=== PATIENT | female | born 1935 | race Hispanic/Latino ===

== ENCOUNTER 2019-08-03 10:20 | Emergency (ER) | payer OTHER ==
[2019-08-03] MEDS ORDERED: IBUPROFEN 400 MG TAB ONE (11:14)
[2019-08-03] MEDS ORDERED: ACETAMINOPHEN 500 MG TAB ONE (11:15)
--- NOTE | 2019-08-03 11:45 | RAD REPORT ---
EXAM DESCRIPTION: CT - [id number] - 08/03/2019 11:19 am CLINICAL HISTORY: Fall, head and neck injury COMPARISON: None. TECHNIQUE: Axial 5 mm thick images of the head were obtained. Axial 2 mm thick images of the cervic al spine were obtained with sagittal and coronal reconstruction images generated and reviewed. All CT scans are performed using dose optimization technique as appropriate and may include automated exposure control or mA/KV adjustment according to patient size. FINDINGS: No intracranial hemorrhage, mass, edema or acute intracranial finding. No suspicion for acute infarct ion. Moderate atrophy and mild to moderate chronic ischemic changes are present. Ventricles are in pr oportion. Mastoid air cells are clear. Orbits, sinuses and facial bones are further detailed in separ ate report. No globe or orbit abnormality seen. Moderate-sized right frontal scalp hematoma is presen t. No skull fracture. Patient has hyperostosis frontalis interna normal variant. Cervical body height and alignment are normal. C6-7 disc space narrowing. Patient has prominent degen erative change at the dens C1 level. Calcifications are present in the transverse ligament posterior to the dens. An acute component not seen. No vertebral body fracture identified. Patient has prominen t facet degenerative change primarily on the left. There is significant foraminal stenosis on the lef t at C4-5. Mild bilateral foraminal stenosis at C5-6 and on the left at C6-7. Central canal detail is inherently limited. No paraspinal mass or hematoma. IMPRESSION: Atrophy and chronic ischemic changes are present. No acute intracranial finding. Orbits, facial bones and sinuses are separately detailed. Cervical spine degenerative changes are present as detailed. No acute findings seen.
--- NOTE | 2019-08-03 11:49 | RAD REPORT ---
EXAM DESCRIPTION: CT - Facial Bones W/ Mpr - 08/03/2019 11:19 am CLINICAL HISTORY: Fall, blunt force trauma to the forehead COMPARISON: None. TECHNIQUE: Axial 2 millimeter thick images of the facial bones were obtained with sagittal and coron al reconstruction imaging. All CT scans are performed using dose optimization technique as appropriate and may include automated exposure control or mA/KV adjustment according to patient size. FINDINGS: Mastoid air cells are clear. No skullbase fracture identified. No fracture of the mandible. Degenerative changes are present at both temporomandibular joints. Both condyles are positioned anteriorly from the glenoid fossa. This is a chronic finding for this patient . Nondisplaced nasal bone fracture present. Nasal septum remains in the midline. No other facial bone fractures seen. Moderately large scalp hematoma overlies the right frontal bone and extending to the superior orbital ridge. Minimal air-fluid level is present in the sphenoid sinus. Sinuses are otherw ise clear. No globe or orbital content acute finding. IMPRESSION: Nondisplaced nasal bone fractures. Moderate scalp hematoma overlying the right frontal bone. Underlying bone and sinus are intact. 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
--- NOTE | 2019-08-03 13:03 | RAD REPORT ---
EXAM DESCRIPTION: RAD - Pelvis - 08/03/2019 12:51 pm CLINICAL HISTORY: Fall, pelvis and hip pain COMPARISON: None. TECHNIQUE: AP imaging of the pelvis was obtained. FINDINGS: No fracture of the bony pelvis. No fracture, dislocation or other acute hip joint finding. No significant SI joint findings. No soft tissue abnormality. IMPRESSION: Negative pelvis for acute or significant findings.
--- NOTE | 2019-08-03 13:04 | RAD REPORT ---
EXAM DESCRIPTION: RAD - Knee Right 3 View - 08/03/2019 12:52 pm CLINICAL HISTORY: Fall, right knee pain COMPARISON: None. FINDINGS: No fracture, dislocation or periosteal reaction.No joint effusion seen. Patient has signif icant medial compartment narrowing with moderate size marginal spurs. Patella femoral joint space als o narrowed with patella marginal spurring. Mild spurring is present along the tibial spine. No foreig n body or other soft tissue abnormality. IMPRESSION: Prominent degenerative change as detailed. No acute finding. Clinical concerns for internal derangement or occult bony injury could be further assessed with MR im aging.
--- NOTE | 2019-08-03 13:05 | RAD REPORT ---
EXAM DESCRIPTION: RAD - Chest Single View - 08/03/2019 12:52 pm CLINICAL HISTORY: Fall, chest pain COMPARISON: April 2014 TECHNIQUE: AP portable chest image was obtained 1215 hours . FINDINGS: Lung volumes are low. No peripheral mass or consolidation. No failure or volume overload. Mediastinum is accentuated by shallow inspiration imaging. Heart and vasculature are normal. No measu rable pleural effusion and no pneumothorax. No acute bony abnormality seen. No acute aortic findings suspected. IMPRESSION: No acute cardiopulmonary process. No suspicious change from comparison.
--- NOTE | 2019-08-03 14:49 | EDPHYS ---
Physician Documentation [facility] Name: Odlays Jones Age: 83 yrs Sex: Female : 1935 Arrival Date: 08/03/2019 Time: 10:27 Bed 24 Private MD: ED Physician Kartik Rai HPI: 08/03 10:59 This 83 yrs old Female presents to ER via EMS with complaints of Fall Injury. wa 10:59 Details of fall: The patient fell from an upright position. Onset: The symptoms/episode wa began/occurred just prior to arrival. Associated injuries: The patient sustained facial. Severity of symptoms: At their worst the symptoms were moderate, in the emergency department the symptoms are unchanged. The patient has not experienced similar symptoms in the past. The patient has not recently seen a physician. states tripped and fell inside a bank. denies LOC. admits to facial pain. fell on R side. admits to pain on the R knee and shoulder. Historical: - Allergies: 10:31 No Known Allergies; ca1 - PMHx: 10:31 Hyperlipidemia; Hypertension; Diabetes - NIDDM; ca1 - PSHx: 10:31 Hysterectomy; Appendectomy; ca1 - Immunization history:: Adult Immunizations not up to date, Last tetanus immunization: unknown. - Social history:: Smoking status: Patient/guardian denies using tobacco. - Ebola Screening: : Patient negative for fever greater than or equal to 101.5 degrees Fahrenheit, and additional compatible Ebola Virus Disease symptoms Patient denies exposure to infectious person Patient denies travel to an Ebola-affected area in the 21 days before illness onset No symptoms or risks identified at this time. - Family history:: not pertinent. - Hospitalizations: : No recent hospitalization is reported. ROS: 11:05 Constitutional: Negative for body aches, chills, fever, weight loss. wa 11:05 Eyes: Positive for swelling, of the R forehead, Negative for pain, photophobia, redness. 11:05 ENT: Positive for abrasion , Negative for dental pain. 11:05 Neck: Negative for injury or acute deformity. 11:05 Cardiovascular: Negative for chest pain, edema, orthopnea, palpitations. 11:05 Respiratory: Negative for cough, shortness of breath. 11:05 Abdomen/GI: Negative for abdominal pain. 11:05 Back: Negative for injury or acute deformity, pain at rest. 11:05 MS/extremity: Positive for pain, R knee. R shoulder and upper arm. 11:05 Skin: Positive for abrasion(s), of the face. 11:05 All other systems are negative. 14:52 : Negative for urinary symptoms. wa 14:53 Psych: Negative for depression, anxiety, suicide ideation, homicidal ideation, and wa hallucinations. Exam: 11:09 Constitutional: This is a well developed, well nourished patient who is awake, alert, wa and in no acute distress. Chest/axilla: Normal chest wall appearance and motion. Nontender with no deformity. No lesions are appreciated. Cardiovascular: Regular rate and rhythm with a normal S1 and S2. No gallops, murmurs, or rubs. Normal PMI, no JVD. No pulse deficits. Respiratory: Lungs have equal breath sounds bilaterally, clear to auscultation and percussion. No rales, rhonchi or wheezes noted. No increased work of breathing, no retractions or nasal flaring. Abdomen/GI: Soft, non-tender, with normal bowel sounds. No distension or tympany. No guarding or rebound. No evidence of tenderness throughout. Back: No spinal tenderness. No costovertebral tenderness. Full range of motion. Neuro: Awake and alert, GCS 15, oriented to person, place, time, and situation. Cranial nerves II-XII grossly intact. Motor strength 5/5 in all extremities. Sensory grossly intact. Cerebellar exam normal. Normal gait. Psych: Awake, alert, with orientation to person, place and time. Behavior, mood, and affect are within normal limits. 11:09 Neck: Trachea midline, no thyromegaly or masses palpated, and no cervical lymphadenopathy. Supple, full range of motion without nuchal rigidity, or vertebral point tenderness. No Meningismus. 11:09 Head/face: Noted is abrasion(s), that are mild, of the face, contusion, of the R forehead, tenderness, of the R forehead. 11:09 Musculoskeletal/extremity: Extremities: grossly normal except: noted in the right knee: tenderness. 11:09 Skin: injury, abrasion(s). Vital Signs: 10:31 BP 156 / 92; Pulse 78; Resp 18 S; Temp 98.5(O); Pulse Ox 98% on R/A; Weight 81.65 kg ca1 (R); Height 5 ft. 2 in. (157.48 cm) (R); Pain 9/10; 12:52 BP 154 / 69; Pulse 71; Resp 16 S; Pulse Ox 99% on R/A; ca1 14:17 BP 173 / 80; Pulse 76; Resp 16 S; Pulse Ox 99% on R/A; ca1 10:31 Body Mass Index 32.92 (81.65 kg, 157.48 cm) ca1 Spurger Coma Score: 10:35 Eye Response: spontaneous(4). Verbal Response: oriented(5). Motor Response: obeys ca1 commands(6). Total: 15. Trauma Score (Adult): 10:35 Eye Response: spontaneous(1); Verbal Response: oriented(1); Motor Response: obeys ca1 commands(2); Systolic BP: > 89 mm Hg(4); Respiratory Rate: 10 to 29 per min(4); Spurger Score: 15; Trauma Score: 12 MDM: 10:28 Patient medically screened. wa 11:15 Differential diagnosis: closed head injury, contusion, fracture, multiple trauma. Data wa reviewed: vital signs, nurses notes. 13:56 Test interpretation: by ED physician or midlevel provider: head and C-spine CT: no wa acute process. CXR: no acute process. pelvic x-ray: no acute process. facial CT: non-displaced nasal bone fx. R forehead hematoma. Response to treatment: the patient's symptoms have markedly improved after treatment. 14:45 Test interpretation: by ED physician or midlevel provider: R shoulder x-ray: No acute wa fx. ED course: pain improved with pain meds. advised tylenol for pain. ENT f/u. . 08/03 10:58 Order name: XRAY Pelvis; Complete Time: 13:15 ny 08/03 10:58 Order name: XRAY Chest (1 view); Complete Time: 13:15 ny 08/03 10:58 Order name: CT Head C Spine; Complete Time: 12:21 ny 08/03 10:59 Order name: CT Facial Bones W/O Con; Complete Time: 12:22 ny 08/03 10:59 Order name: Knee Right 3 View XRAY; Complete Time: 13:15 ny 08/03 13:10 Order name: Shoulder Right (2 View) XRAY wa Administered Medications: 11:30 Drug: Tylenol 1000 mg Route: PO; ca1 12:54 Follow up: Response: No adverse reaction; Pain is decreased ca1 11:32 Drug: Motrin 400 mg Route: PO; ca1 12:54 Follow up: Response: No adverse reaction; Pain is decreased ca1 Disposition: 08/03/19 14:48 Discharged to Home. Impression: fall, acute nasal bone fracture, facial abrasion, right shoulder sprain. - Condition is Stable. - Discharge Instructions: Shoulder Sprain, Nasal Fracture, [id number]. - Prescriptions for cetirizine 10 mg Oral tablet - take 1 tablet by ORAL route once daily; 10 tablet. - Medication Reconciliation Form, Thank You Letter, Antibiotic Education, Prescription Opioid Use form. - Follow up: Private Physician; When: 2 - 3 days; Reason: Re-evaluation by your physician. Follow up: Jeanine Bocanegra MD; When: 2 - 3 days; Reason: Recheck today's complaints. - Problem is new. - Symptoms have improved. - Notes: take 2 extra-strength tylenol for pain 2-3 times a day as needed. take cetirizine if congested. follow up with the ENT doctor for fractured nose evaluation Signatures: Dispatcher [employer] EDMS Kartik Rai MD MD wa Acob, Cheryl, RN RN ca1 Corrections: (The following items were deleted from the chart) 14:52 14:48 08/03/2019 14:48 Discharged to Home. Impression: fall; acute nasal bone fracture; wa facial abrasion; right shoulder sprain. Condition is Stable. Forms are Medication Reconciliation Form, Thank You Letter, Antibiotic Education, Prescription Opioid Use. Follow up: Private Physician; When: 2 - 3 days; Reason: Re-evaluation by your physician. Problem is new. Symptoms have improved. ny 15:02 14:52 08/03/2019 14:48 Discharged to Home. Impression: fall; acute nasal bone fracture; ca1 facial abrasion; right shoulder sprain. Condition is Stable. Discharge Instructions: Nasal Fracture, [id number], Shoulder Sprain. Prescriptions for cetirizine 10 mg Oral tablet - take 1 tablet by ORAL route once daily; 10 tablet. and Forms are Medication Reconciliation Form, Thank You Letter, Antibiotic Education, Prescription Opioid Use. Follow up: Private Physician; When: 2 - 3 days; Reason: Re-evaluation by your physician. Follow up: Jeanine Bocanegra; When: 2 - 3 days; Reason: Recheck today's complaints. Problem is new. Symptoms have improved. wa
--- NOTE | 2019-08-03 14:49 | ER ---
Nurse's Notes [facility] Name: Odalys Jones Age: 83 yrs Sex: Female : 1935 Arrival Date: 08/03/2019 Time: 10:27 Bed 24 Private MD: Diagnosis: fall;acute nasal bone fracture;facial abrasion;right shoulder sprain Presentation: 08/03 10:27 Presenting complaint: EMS states: Mechanical fall, fell face forward. Hematoma on L ca1 frontal area. DENIES LOC, pt NOT on blood thinners. Epistaxis on scene but has resolved. Cold pack applied on affected area. Transition of care: patient was not received from another setting of care. Onset of symptoms was August 03, 2019. Risk Assessment: Do you want to hurt yourself or someone else? Patient reports no desire to harm self or others. Initial Sepsis Screen: Does the patient meet any 2 criteria? No. Patient's initial sepsis screen is negative. Does the patient have a suspected source of infection? No. Patient's initial sepsis screen is negative. Care prior to arrival: Care prior to arrival: Glucose check: 137. 10:27 Method Of Arrival: EMS: [facility] ca1 10:27 Acuity: ZURI 3 ca1 11:09 Mechanism of Injury: Fall from standing position. Trauma event details: Injury occurred ca1 in the [facility], Injury occurred: at home. Injury occurred: August 03, 2019 Injury occurred at: 10:15. Trauma Activation: Not Applicable Physician: ED Physician; Name: ; Notified At: ; Arrived At: Physician: General Surgeon; Name: ; Notified At: ; Arrived At: Physician: Radiology; Name: ; Notified At: ; Arrived At: Physician: Respiratory; Name: ; Notified At: ; Arrived At: Physician: Lab; Name: ; Notified At: ; Arrived At: Historical: - Allergies: 10:31 No Known Allergies; ca1 - PMHx: 10:31 Hyperlipidemia; Hypertension; Diabetes - NIDDM; ca1 - PSHx: 10:31 Hysterectomy; Appendectomy; ca1 - Immunization history:: Adult Immunizations not up to date, Last tetanus immunization: unknown. - Social history:: Smoking status: Patient/guardian denies using tobacco. - Ebola Screening: : Patient negative for fever greater than or equal to 101.5 degrees Fahrenheit, and additional compatible Ebola Virus Disease symptoms Patient denies exposure to infectious person Patient denies travel to an Ebola-affected area in the 21 days before illness onset No symptoms or risks identified at this time. - Family history:: not pertinent. - Hospitalizations: : No recent hospitalization is reported. Screenin:05 Abuse screen: Denies threats or abuse. Denies injuries from another. Nutritional ca1 screening: No deficits noted. Tuberculosis screening: No symptoms or risk factors identified. Fall Risk Fall in past 12 months (25 points). Ambulatory Aid- Crutches/Cane/Walker (15 pts). Total Zelaya Fall Scale indicates Low Risk Score (25-44 pts). Fall prevention measures have been instituted. Side Rails Up X 2 Family Present and informed to notify staff if they need to leave bedside As available Patient and Family Educated on Fall Prevention Program and strategies. Primary Survey: 10:35 NO uncontrolled hemorrhage observed. A: The patient is alert. Airway: patent. ca1 Breathing/Chest: Respiratory pattern: regular, Respiratory effort: spontaneous, unlabored. Circulation: Heart tones present. Pulses: palpable bilateral radial, brachial, femoral, popliteal, posterior tibial and and dorsalis pedis arteries.. Skin color: pink, Skin temperature: warm, dry. Disability Alert. Exposure/Environment: All clothing and personal items were removed. Forensic evidence collection is not deemed to be indicated at this time. Items placed in patient belonging bag. There is no evidence of uncontrolled external bleeding. No obvious injuries are noted at this time. A warming method has been applied: A warm blanket has been provided to the patient. 11:35 Reassessment Airway Airway Patent Breathing/Chest Respiratory pattern Regular ca1 Respiratory effort Spontaneous Unlabored Breath sounds Clear Chest inspection Symmetrical Circulation Pulses Palpable Color [place] Pale Disability Alert. Assessment: 10:35 General: Appears in no apparent distress. comfortable, Behavior is calm, cooperative, ca1 appropriate for age. Pain: Complains of pain in forehead Pain currently is 9 out of 10 on a pain scale. Neuro: Level of Consciousness is awake, alert, obeys commands, Oriented to person, place, time, situation, Appropriate for age. Cardiovascular: Heart tones S1 S2 present Capillary refill < 3 seconds Patient's skin is warm and dry. Respiratory: Airway is patent Respiratory effort is even, unlabored, Respiratory pattern is regular, symmetrical, Breath sounds are clear bilaterally. GI: Abdomen is round non-distended, Bowel sounds present X 4 quads. Abd is soft and non tender X 4 quads. : No deficits noted. No signs and/or symptoms were reported regarding the genitourinary system. EENT: No deficits noted. No signs and/or symptoms were reported regarding the EENT system. Derm: Skin is intact, is healthy with good turgor, Skin is pink, warm \T\ dry. Bruising that is dark purple, on forehead. Musculoskeletal: Circulation, motion, and sensation intact. Capillary refill Range of motion: intact in all extremities. Injury Description: Hematoma on R temporofrontal lobe. 11:30 Reassessment: Patient appears in no apparent distress at this time. Patient and/or ca1 family updated on plan of care and expected duration. Pain level reassessed. Patient is alert, oriented x 3, equal unlabored respirations, skin warm/dry/pink. 12:41 Reassessment: Patient appears in no apparent distress at this time. Patient and/or ca1 family updated on plan of care and expected duration. Pain level reassessed. Patient is alert, oriented x 3, equal unlabored respirations, skin warm/dry/pink. 13:17 Reassessment: Patient appears in no apparent distress at this time. Patient is alert, ca1 oriented x 3, equal unlabored respirations, skin warm/dry/pink. Pt ambulated to restroom with slow steady gait. 13:23 Reassessment: Xray at bedside. ca1 14:17 Reassessment: Patient appears in no apparent distress at this time. Patient and/or ca1 family updated on plan of care and expected duration. Pain level reassessed. Patient is alert, oriented x 3, equal unlabored respirations, skin warm/dry/pink. Vital Signs: 10:31 BP 156 / 92; Pulse 78; Resp 18 S; Temp 98.5(O); Pulse Ox 98% on R/A; Weight 81.65 kg ca1 (R); Height 5 ft. 2 in. (157.48 cm) (R); Pain 9/10; 12:52 BP 154 / 69; Pulse 71; Resp 16 S; Pulse Ox 99% on R/A; ca1 14:17 BP 173 / 80; Pulse 76; Resp 16 S; Pulse Ox 99% on R/A; ca1 10:31 Body Mass Index 32.92 (81.65 kg, 157.48 cm) ca1 Viet Coma Score: 10:35 Eye Response: spontaneous(4). Verbal Response: oriented(5). Motor Response: obeys ca1 commands(6). Total: 15. Trauma Score (Adult): 10:35 Eye Response: spontaneous(1); Verbal Response: oriented(1); Motor Response: obeys ca1 commands(2); Systolic BP: > 89 mm Hg(4); Respiratory Rate: 10 to 29 per min(4); [place] Score: 15; Trauma Score: 12 ED Course: 10:27 Patient arrived in ED. ca1 10:28 Kartik Rai MD is Attending Physician. wa 10:29 Triage completed. ca1 10:31 Arm band placed on right wrist. ca1 10:35 Patient maintains SpO2 saturation greater than 95% on room air. ca1 11:02 Sepideh Posey, KOKO is Primary Nurse. ca1 11:05 Patient has correct armband on for positive identification. Bed in low position. Call ca1 light in reach. Side rails up X 1. Pulse ox on. NIBP on. Warm blanket given. 11:05 No provider procedures requiring assistance completed. Patient did not have IV access ca1 during this emergency room visit. 11:10 Thermoregulation: warm blanket given to patient. ca1 11:20 CT Head C Spine In Process Unspecified. EDMS 11:20 CT Facial Bones W/O Con In Process Unspecified. EDMS 12:52 XRAY Pelvis In Process Unspecified. EDMS 12:52 XRAY Chest (1 view) In Process Unspecified. EDMS 12:52 Knee Right 3 View XRAY In Process Unspecified. EDMS 13:34 Shoulder Right (2 View) XRAY In Process Unspecified. EDMS 14:52 Jeanine Bocanegra MD is Referral Physician. wa Administered Medications: 11:30 Drug: Tylenol 1000 mg Route: PO; ca1 12:54 Follow up: Response: No adverse reaction; Pain is decreased ca1 11:32 Drug: Motrin 400 mg Route: PO; ca1 12:54 Follow up: Response: No adverse reaction; Pain is decreased ca1 Output: 15:01 Urine: 150ml (Voided); Total: 150ml. ca1 Outcome: 14:48 Discharge ordered by . wa 15:00 Patient's length of stay in the Emergency Department was greater than 2 hours. ca1 15:01 Discharged to home via wheelchair. ca1 15:01 Condition: stable 15:01 Discharge instructions given to patient, Instructed on discharge instructions, follow up and referral plans. medication usage, Demonstrated understanding of instructions, follow-up care, medications, Prescriptions given X 1. 15:02 Patient left the ED. ca1 Signatures: Dispatcher [employer] EDMS Kartik Rai MD MD wa Acob, Cheryl, RN RN ca1 Corrections: (The following items were deleted from the chart) 10:31 10:27 Care prior to arrival: ca1 ca1 12:55 10:35 Injury Description: Hematoma on L temporofrontal lobe ca1 ca1
[2019-08-03 15:07] VITALS: TEMP 98.5
[2019-08-03 15:08] VITALS: O2SAT 99
[2019-08-03 15:09] VITALS: BP 173/80
--- NOTE | 2019-08-03 15:19 | RAD REPORT ---
EXAM DESCRIPTION: Shoulder Right 2 View - 08/03/2019 1:33 pm CLINICAL HISTORY: Trauma, right shoulder pain COMPARISON: None. TECHNIQUE: Internal and external rotation views of the right shoulder were obtained. FINDINGS: There is no fracture or dislocation. AC joint degenerative changes are minimal. Acromial humeral joint space is narrowed. This can be indirect evidence for chronic rotator cuff tear. Minimal degenerative change along the superolateral humeral head. IMPRESSION: No fracture or dislocation. Degenerative changes are present including suspected chronic rotator cuff tear.
== END 2019-08-03 15:02 | disposition home or self-care (01) ==
LOC: ER 10:20
DX: S02.2XXA Fracture of nasal bones, initial encounter for closed fracture (principal); S43.401A Unspecified sprain of right shoulder joint, initial encounter; S00.81XA Abrasion of other part of head, initial encounter; W19.XXXA Unspecified fall, initial encounter; Y93.9 Activity, unspecified; Y92.9 Unspecified place or not applicable; I10 Essential (primary) hypertension
CPT/HCPCS: 70450; 70486; 71045; 72125; 72170; 76377; 99284

== ENCOUNTER 2021-04-30 10:20 | Day surgery (SDC) | payer OTHER ==
[2021-04-27 12:59] LABS: Absolute Lymphocytes (CBC) 1.9 K/uL (0.7-4.9); Basophils % 0.6 % (0-1.3); Hematocrit 32.5 % (36.0-45.0); MPV 7.3 fL (7.6-11.3); RBC Red Blood Cell Count 3.49 M/uL (3.86-4.86)
[2021-04-27 13:03] LABS: Protime INR 1.01
--- NOTE | 2021-04-27 13:11 | RAD REPORT ---
EXAM DESCRIPTION: RAD - Chest Pa And Lat (2 Views) - 04/27/2021 12:52 pm CLINICAL HISTORY: pre op COMPARISON: Single-view chest July 2019 TECHNIQUE: Frontal and lateral views of the chest were obtained. FINDINGS: The lungs are clear of acute process. Prominent baseline interstitial pattern is present similar to comparison. No failure or volume overload. Heart size is normal and central vasculature is within normal limits. No pleural effusion or pneumo thorax seen. No acute bony finding noted. No aortic abnormality. IMPRESSION: No acute cardiopulmonary process. No significant change from comparison study.
[2021-04-27 13:26] LABS: Potassium 4.6 mmol/L (3.5-5.1)
[2021-04-30] MEDS ORDERED: NA CHLORIDE 0.9% 500 ML ONE (10:58)
[2021-04-30] MEDS ORDERED: HEPA 1000U/500MLS 1,000 UNIT/500 ML BAG IV ONE ×2 (12:11→14:04)
[2021-04-30] MEDS ORDERED: FENTANYL CITR 100 MCG/2 ML ONE (12:12)
[2021-04-30] MEDS ORDERED: ATROPINE SULF 1 MG/10 ML SYR IV ONE (12:12)
[2021-04-30] MEDS ORDERED: MIDAZOLAM HCL 2 MG/2 ML INJ ONE (12:12)
[2021-04-30] MEDS ORDERED: VERAPAMIL HCL 10 MG/4 ML VIAL IV ONE (12:12)
[2021-04-30] MEDS ORDERED: HEPARIN 5000 UNIT/ML 1 ML VIAL ONE (12:13)
[2021-04-30] MEDS ORDERED: ASPIRIN 325 MG TAB ONE (13:05)
[2021-04-30] MEDS ORDERED: CLOPIDOGREL 75 MG TABLET ONE (13:05)
[2021-04-30] MEDS ORDERED: HEPA 1000U/500MLS 2,000 UNIT/1,000 ML BAG IV ONE (13:18)
--- NOTE | 2021-04-30 14:01 | OP ---
Date of Procedure: 04/30/2021 Surgeon: NATHANAEL GARCIA Procedures Performed: 1.Selective coronary angiogram. 2.PCI of severe mid LAD stenosis using a 3.0 x 60 mm Synergy drug-eluting stent. Indication: Unstable angina and abnormal stress test. Access: 1.Right radial artery failed and closed with TR band. 2.Right femoral artery 6-Macedonian closed with a 6-[place]acedonian Angio-Seal. Complications: None. Bleeding: Less than 10 mL. Description Of Procedure: After risks, benefits, and alternatives were explained, the patient agreed to the procedure and signed informed consent. The patient was brought into the cardiac catheterizat ion laboratory, prepped and draped in usual sterile fashion. Then, we accessed radial artery using [facility] micropuncture kit and placed a 6-Macedonian slender sheath and then we took a 5-Macedonian [place] 4.0 catheter into the aortic root, engaged the left main and right coronary artery, and took standard vi ews. However, there was significant tortuosity of the left subclavian that will make it very difficu lt to do intervention, so just had to switch to the groin. Intervention Details: I accessed the right femoral artery using micropuncture kit, ultrasound guidan ce and fluoroscopy, and placed 6-Macedonian [place] sheath and then took a 6-Macedonian EBU 3.5 into the aor tic root, engaged the left main and then took a short Run-Through wire into the left main and then th e LAD crossing the stenosis. The lesion was pre-dilated using 2.5 x 12 mm Compliant balloon to high pressure and then took a 3.0 x 60 mm Synergy drug-eluting stent across the stenosis. The stent was d eployed successfully without complications. The diagonal branch that comes off the area of stenosis continued to have a MERYL-3 flow at the end of procedure, that was jailed slightly, but it is a very s mall vessel. Then after the final views that was satisfactory, we removed the Run-Through wire and t he EBU, and the [place] sheath was removed and closed the access with 6-Macedonian Angio-Seal with good hemostasis. The radial sheath was removed and TR band was placed with good hemostasis. Findings: 1.Left main is large and normal. 2.LAD; proximal 20%, then mid 90% stenosis, status post successful PCI as above and the diagonal 2 b ranch is small vessel with a proximal 70% stenosis was left alone. 3.The left circumflex; moderate-size, mid 30%. Otherwise, the OM and the left circumflex looks norm al. 4.RCA; large, dominant, proximal 30%, distal 30% to 40% stenosis and the right PLB has proximal 30%. Conclusion: Severe mid LAD stenosis, status post successful PCI as outlined above. Plan: Due to jailing the diagonal and needing to do 2 separate access and difficulty encountered due to tortuosity of the right subclavian, we will observe the patient overnight and continue aspirin, P lavix, high-dose statin, and if no complications, can be released home tomorrow and follow up with me in the office in 4 weeks. /FRANTZ Voice ID: [id number] Report ID: [id number]
[2021-04-30] MEDS ORDERED: LIDOCAINE 1% 20 ML MDV ONE (14:05)
[2021-04-30] MEDS ORDERED: MORPHINE 4 MG/ML SYR ONE (15:08)
--- NOTE | 2021-04-30 17:35 | P.HP ---
Certification for Inpatient Patient admitted to: Observation With expected LOS: <2 Midnights Patient will require the following post-hospital care: None Practitioner: I am a practitioner with admitting privileges, knowledge of patient current condition, hospital course, and medical plan of care. Services: Services provided to patient in accordance with Admission requirements found in Title 42 Section 412.3 of the Code of Federal Regulations Patient History Date of Service: 04/30/21 Primary Care Provider: Dr. Wright Reason for admission: Chest pain History of Present Illness: 85-year-old female with history of hypertension, CAD, chronic renal disease stage III. Patient presented to the hospital for a outpatient heart catheterization. Patient had abnormal stress test and unstable angina. Heart catheterization performed showed left main was large and normal. LAD showed proximal 20% then mid 90% stenosis. Patient had successful stent placed. A diagonal 2 branch showed proximal 70% stenosis. Left circumflex was moderate size showed mid 30%. Otherwise the OM and the left circumflex looked normal. RCA was large and dominant. Proximal 30% noted. Distal 30% to 40% stenosis noted in the right PLB had proximal 30% stenosis. Patient with severe mid LAD's disease. Status post successful stent placed. Patient had some chest pain post heart catheterization. I was asked to admit the patient for observation. When I saw the patient in the post heart catheterization area, chest pain had improved. Blood pressure stable. Patient will be admitted for observation. Allergies No Known Allergies Allergy (Verified 04/27/21 12:14) Home medications list reviewed: Yes Home Medications: gemfibroziL [Lopid*] 600 mg PO BID 12/08/12 Aspirin 162 mg PO DAILY #0 tab.chew 12/10/12 Ciprofloxacin HCl [Cipro*] 500 mg PO BID #5 tab 02/13/13 Multivitamin with Iron [Daily Vitamin + Iron] 1 each PO DAILY #90 tablet 02/13/13 - Past Medical/Surgical History Diabetic: No -: Hypertension -: Hyperlipidemia -: CAD -: Hysterectomy Psychosocial/ Personal History: Patient lives at home - Family History Family History: Reviewed- Non-Contributory - Social History Smoking Status: Never smoker Alcohol use: No CD- Drugs: No Caffeine use: No Place of Residence: Home Review of Systems General: Unremarkable Eyes: Unremarkable ENT: Unremarkable Respiratory: Unremarkable Cardiovascular: Chest Pain, As per HPI Gastrointestinal: Unremarkable Genitourinary: Unremarkable Musculoskeletal: Unremarkable Integumentary: Unremarkable Neurological: Unremarkable Lymphatics: Unremarkable Physical Examination - Vital Signs Temperature: 97.0 F Blood Pressure: 151/63 Pulse: 51 Respirations: 16 Pulse Ox (%): 96 Assessment and Plan - Plan Heart catheterization: Date of Procedure: 04/30/2021 Surgeon: NATHANAEL GARCIA Procedures Performed: 1. Selective coronary angiogram. 2. PCI of severe mid LAD stenosis using a 3.0 x 60 mm Synergy drug-eluting stent. Indication: Unstable angina and abnormal stress test. Access: 1. Right radial artery failed and closed with TR band. 2. Right femoral artery 6-Cameroonian closed with a 6-Cameroonian Angio-Seal. Complications: None. Bleeding: Less than 10 mL. Findings: 1. Left main is large and normal. 2. LAD; proximal 20%, then mid 90% stenosis, status post successful PCI as above and the diagonal 2 branch is small vessel with a proximal 70% stenosis was left alone. 3. The left circumflex; moderate-size, mid 30%. Otherwise, the OM and the left circumflex looks normal. 4. RCA; large, dominant, proximal 30%, distal 30% to 40% stenosis and the right PLB has proximal 30%. Conclusion: Severe mid LAD stenosis, status post successful PCI as outlined above. Physical Exam: GENERAL: The patient is a well-developed, well-nourished, in no apparent distress. Alert and oriented x3. VITAL SIGNS: Reviewed HEENT: Head is normocephalic and atraumatic. Extraocular muscles are intact. Pupils are equal, round, and reactive to light and accommodation. Nares appeared normal. Mouth is well hydrated and without lesions. Mucous membranes are moist. NECK: Supple. No carotid bruits. No lymphadenopathy or thyromegaly. LUNGS: Clear to auscultation. No crackles or wheezes are heard. HEART: Regular rate and rhythm, no appreciable gallops, rubs, murmurs or extra heart sounds ABDOMEN: Soft, nontender, and nondistended. Positive bowel sounds. No hepatosplenomegaly was noted. EXTREMITIES: Without any cyanosis, clubbing, rash, lesions or peripheral edema. NEUROLOGIC: The patient is oriented to person, place and time. Strength and sensation are grossly intact. Face is symmetric. SKIN: Normal color, turgor and temperature. No ulcerations or rashes noted. Impression: Chest pain status post heart catheterization showing severe mid LAD disease status post stent Hypertension Hyperlipidemia Chronic renal disease stage III Plan: Patient admitted for observation to observe. Patient had some chest pain post heart catheterization. Heart catheterization was difficult due to tortuosity of the right subclavian. The patient will be monitored overnight. Patient will continue with aspirin, Plavix, Lipitor and blood pressure medication. The patient will also receive IV fluids due to her chronic renal disease. Anticipate continued improvement. If stable patient will be released within the next 24 hours. Code Status: Full Code DVT prophylaxis: Lovenox Advanced Care Planning-30 minutes: Discharge home. Discharge Plan: Home Plan to discharge in: 24 Hours - Advance Directives Does patient have a Living Will: No Does patient have a Durable POA for Healthcare: No - Code Status/Comfort Care Code Status Assessed: Yes (Patient is full code) Time Spent Managing Pts Care (In Minutes): 55
[2021-04-30 18:10] VITALS: BMI 31.4
[2021-04-30 18:24] VITALS: O2SAT 96
[2021-04-30] MEDS ORDERED: ACETAMINOPHEN 325 MG TABLET PO PRN ×2 (18:27→18:31)
[2021-04-30] MEDS ORDERED: MORPHINE 4 MG/ML SYR IV PRN (18:28)
[2021-04-30] MEDS ORDERED: ONDANSETRON 4 MG/2 ML VIAL IV PRN (18:28)
[2021-04-30] MEDS ORDERED: NITROGLYCERIN 0.4 MG/TAB SL PRN (18:30)
[2021-04-30] MEDS ORDERED: ACETAMINOPHEN 500 MG TAB PO PRN (18:46)
[2021-04-30] MEDS: NA CHLORIDE 0.9% 1,000 ML IV SCH (19:20)
[2021-04-30] MEDS ORDERED: icosapent ethyL 1 GM CAP PO SCH (21:00)
[2021-04-30] MEDS ORDERED: ATORVASTATIN 40 MG TAB PO SCH (21:00)
[2021-05-01] MEDS: NA CHLORIDE 0.9% 1,000 ML IV SCH (04:29)
--- NOTE | 2021-05-01 06:11 | P.DS ---
Discharge Date: 05/01/21 Primary Care Provider: Dr. Wright Disposition: ROUTINE DISCHARGE Discharge Condition: GOOD Reason for Admission: Chest pain Consultations: Cardiology-Dr. Theodore Procedures: Heart catheterization: Date of Procedure: 04/30/2021 Surgeon: NATHANAEL THEODORE Procedures Performed: 1. Selective coronary angiogram. 2. PCI of severe mid LAD stenosis using a 3.0 x 60 mm Synergy drug-eluting stent. Indication: Unstable angina and abnormal stress test. Access: 1. Right radial artery failed and closed with TR band. 2. Right femoral artery 6-Citizen Of [place] closed with a 6-Citizen Of [place] Angio-Seal. Complications: None. Bleeding: Less than 10 mL. Findings: 1. Left main is large and normal. 2. LAD; proximal 20%, then mid 90% stenosis, status post successful PCI as above and the diagonal 2 branch is small vessel with a proximal 70% stenosis was left alone. 3. The left circumflex; moderate-size, mid 30%. Otherwise, the OM and the left circumflex looks normal. 4. RCA; large, dominant, proximal 30%, distal 30% to 40% stenosis and the right PLB has proximal 30%. Conclusion: Severe mid LAD stenosis, status post successful PCI as outlined above. Medical Problem List: Chest pain status post heart catheterization showing severe mid LAD disease status post stent Hypertension Hyperlipidemia Chronic renal disease stage III Brief History of Present Illness: 85-year-old female with history of hypertension, CAD, chronic renal disease stage III. Patient presented to the hospital for a outpatient heart catheterization. Patient had abnormal stress test and unstable angina. Heart catheterization performed showed left main was large and normal. LAD showed proximal 20% then mid 90% stenosis. Patient had successful stent placed. A diagonal 2 branch showed proximal 70% stenosis. Left circumflex was moderate size showed mid 30%. Otherwise the OM and the left circumflex looked normal. RCA was large and dominant. Proximal 30% noted. Distal 30% to 40% stenosis noted in the right PLB had proximal 30% stenosis. Patient with severe mid LAD's disease. Status post successful stent placed. Patient had some chest pain post heart catheterization. I was asked to admit the patient for observation. When I saw the patient in the post heart catheterization area, chest pain had improved. Blood pressure stable. Patient will be admitted for observation. Hospital Course: Patient was admitted for observation status post heart catheterization. Patient had some chest pain post catheterization. Chest pain has resolved. Heart catheterization showed severe mid LAD stenosis requiring successful stent. Findings also showed a left main that was large and normal. LAD showed proximal 20% stenosis then mid 90% stenosis. This is where a stent was placed. Proximal 70% stenosis was also noted. Left circumflex was of moderate size. Mid 30% stenosis noted. RCA was large and dominant. Proximal 30% stenosis, distal 30 to 40% stenosis was noted in right PLB had proximal 30% stenosis. At discharge the patient will continue with aspirin 81 mg daily, Plavix 25 mg daily, Lipitor 40 mg daily, and losartan 100 mg daily. Recommend follow-up with cardiology in 1 to 2 weeks to follow-up hospitalization. Patient with hypertension. At discharge patient will continue with her current medication losartan 100 mg daily. Recommend to maintain blood pressure less than 130/80. Further adjustment can be done by her PCP or cardiology. Patient with hyperlipidemia. Lipitor was added for her regimen due to her CAD. At discharge patient will continue with Lipitor 40 mg daily and Vascepa 2 caps twice daily. Recommend to recheck fasting lipid panel in 6 to 8 weeks to monitor progress. Patient with chronic renal disease stage III. Patient did receive some IV fluids post heart catheterization. Renal function stable. Patient will continue to follow-up with nephrology. Future medications may need to be renally dosed. Recommend no further use of nonsteroidal anti-inflammatories. Recommend to recheck labBMP in 2 to 4 weeks to monitor progress. Recommend follow-up with nephrology as directed. Vital Signs/Physical Exam: Temp Pulse Resp BP Pulse Ox 96.9 F 64 18 145/65 H 95 05/01/21 04:00 05/01/21 04:00 05/01/21 04:00 05/01/21 04:00 05/01/21 04:00 General: Alert, In no apparent distress, Oriented x3, Cooperative HEENT: Atraumatic Neck: Supple Respiratory: Clear to auscultation bilaterally, Normal air movement Cardiovascular: Normal pulses, Regular rate/rhythm Gastrointestinal: Normal bowel sounds, No tenderness, No masses, No rebound, No guarding Musculoskeletal: No erythema, No tenderness, No warmth Integumentary: No tenderness/swelling Neurological: Normal speech, Normal strength at 5/5 x4 extr, Normal tone, Normal affect Laboratory Data at Discharge: WBC 5.90 K/uL (4.3-10.9) 04/27/21 12:39 Hgb 10.9 g/dL (12.0-15.0) L 04/27/21 12:39 Hct 32.5 % (36.0-45.0) L 04/27/21 12:39 Plt Count 283 K/uL (152-406) 04/27/21 12:39 PT 11.6 SECONDS (9.5-12.5) 04/27/21 12:39 INR 1.01 04/27/21 12:39 APTT 26.3 SECONDS (24.3-36.9) 04/27/21 12:39 Sodium 141 mmol/L (136-145) 04/27/21 12:39 Potassium 4.6 mmol/L (3.5-5.1) 04/27/21 12:39 BUN 31 mg/dL (7-18) H 04/27/21 12:39 Creatinine 1.57 mg/dL (0.55-1.3) H 04/27/21 12:39 Glucose 104 mg/dL (74-106) 04/27/21 12:39 Home Medications: Ascorbic Acid [Vitamin C] 1,000 mg PO DAILY 04/30/21 Aspirin 81 mg PO DAILY 04/30/21 Cholecalciferol (Vitamin D3) [Vitamin D3] 1,000 unit PO DAILY 04/30/21 Cyanocobalamin (Vitamin B-12) [Vitamin B-12] 1,000 mcg PO DAILY 04/30/21 Losartan Potassium 100 mg PO DAILY 04/30/21 icosapent ethyL [Vascepa 1 gm Cap] 2 cap PO BIDWM 04/30/21 Aspirin [Aspirin EC 81 MG] 81 mg PO DAILY #90 tablet. 05/01/21 Atorvastatin Calcium [Lipitor] 40 mg PO BEDTIME #30 tablet 05/01/21 Clopidogrel Bisulfate [Plavix] 75 mg PO DAILY #30 tablet 05/01/21 New Medications: Aspirin [Aspirin EC 81 MG] 81 mg PO DAILY #90 tablet. Atorvastatin Calcium [Lipitor] 40 mg PO BEDTIME #30 tablet Clopidogrel Bisulfate [Plavix] 75 mg PO DAILY #30 tablet Physician Discharge Instructions: Patient was admitted for observation status post heart catheterization. Patient had some chest pain post catheterization. Chest pain has resolved. Heart catheterization showed severe mid LAD stenosis requiring successful stent. Findings also showed a left main that was large and normal. LAD showed proximal 20% stenosis then mid 90% stenosis. This is where a stent was placed. Proximal 70% stenosis was also noted. Left circumflex was of moderate size. Mid 30% stenosis noted. RCA was large and dominant. Proximal 30% stenosis, distal 30 to 40% stenosis was noted in right PLB had proximal 30% stenosis. At discharge the patient will continue with aspirin 81 mg daily, Plavix 25 mg daily, Lipitor 40 mg daily, and losartan 100 mg daily. Recommend follow-up with cardiology in 1 to 2 weeks to follow-up hospitalization. Patient with hypertension. At discharge patient will continue with her current medication losartan 100 mg daily. Recommend to maintain blood pressure less than 130/80. Further adjustment can be done by her PCP or cardiology. Patient with hyperlipidemia. Lipitor was added for her regimen due to her CAD. At discharge patient will continue with Lipitor 40 mg daily and Vascepa 2 caps twice daily. Recommend to recheck fasting lipid panel in 6 to 8 weeks to monitor progress. Patient with chronic renal disease stage III. Patient did receive some IV fluids post heart catheterization. Renal function stable. Patient will continue to follow-up with nephrology. Future medications may need to be renally dosed. Recommend no further use of nonsteroidal anti-inflammatories. Recommend to recheck labBMP in 2 to 4 weeks to monitor progress. Recommend follow-up with nephrology as directed. Diet: AHA Activity: Ad kendra Time spent managing pt's care (in minutes): 55
[2021-05-01 06:46] LABS: Potassium 4.5 mmol/L (3.5-5.1)
[2021-05-01] MEDS ORDERED: icosapent ethyL 1 GM CAP PO SCH (08:00)
[2021-05-01] MEDS ORDERED: LOSARTAN POTASSIUM 50 MG TABLET PO SCH (09:00)
[2021-05-01] MEDS ORDERED: THIAMINE HCL 100 MG TABLET PO SCH (09:00)
[2021-05-01] MEDS ORDERED: ASPIRIN EC 81 MG TAB PO SCH (09:00)
[2021-05-01] MEDS ORDERED: ASCORBIC ACID 500 MG TABLET PO SCH (09:00)
[2021-05-01] MEDS ORDERED: CLOPIDOGREL 75 MG TABLET PO SCH (09:00)
[2021-05-01] MEDS ORDERED: CYANOCOBALAMIN 1,000 MCG TAB PO SCH (09:00)
[2021-05-01] MEDS ORDERED: VITAMIN D 1000 UNIT TAB PO SCH (09:00)
[2021-05-01 13:39] VITALS: BP 166/88; TEMP 97.6
== END 2021-05-01 14:30 | disposition home or self-care (01) ==
LOC: PRE 10:20 → 2ND 16:57 → CCL 05-01 14:30
PROVIDERS: ATTEND Family Medicine
DX: I25.110 Atherosclerotic heart disease of native coronary artery with unstable angina pectoris (principal); I12.9 Hypertensive chronic kidney disease with stage 1 through stage 4 chronic kidney disease, or unspecified chronic kidney disease; N18.30 Chronic kidney disease, stage 3 unspecified; E78.2 Mixed hyperlipidemia; Z90.710 Acquired absence of both cervix and uterus
CPT/HCPCS: 93005; 85025; 80048 ×2; 36415 ×2; 85610; 85347 ×2; 85730; 71046; 92928; 93454; C1893; C1760; C1725; J1644 ×4; J2250; J3010; J7040; J7030 ×2